=== PATIENT | female | born 1940 | race Caucasian/White ===

== ENCOUNTER 2017-05-29 13:37 | Day surgery (SDC) | payer MEDICARE, OTHER ==
[2017-05-29 13:46] VITALS: BP 126/73
== END 2017-05-29 13:38 | disposition home or self-care (01) ==
LOC: AMB 13:37
PROVIDERS: ATTEND Ophthalmology
PROC: 085K3ZZ Destruction of Left Lens, Percutaneous Approach (ICD-10-PCS; principal; 2017-05-29 15:55)
DX: H26.492 Other secondary cataract, left eye (principal); Z87.891 Personal history of nicotine dependence; Z68.25 Body mass index [BMI] 25.0-25.9, adult